=== PATIENT | female | born 1990 | race Caucasian/White ===

== ENCOUNTER 2018-12-30 16:25 | Inpatient (IN) | payer BC ==
[2018-12-30] MEDS ORDERED: Oxytocin/0.9 % Sodium Chloride 30 UNIT/500 ML BAG ONE (16:40)
[2018-12-30] MEDS ORDERED: Lidocaine 1% 50 ML MDV INJECT PRN (16:44)
[2018-12-30] MEDS ORDERED: Sodium Chloride 0.9% 10 ML Syringe FLUSH PRN (16:44)
[2018-12-30] MEDS ORDERED: Sodium Chloride 0.9% 10 ML SDV IV PRN (16:44)
[2018-12-30] MEDS ORDERED: Methylergonovine 0.2 MG/1 ML Amp IM PRN (16:44)
[2018-12-30] MEDS ORDERED: Nalbuphine 10 MG/1 ML Vial IVPUSH PRN (16:44)
[2018-12-30] MEDS ORDERED: Butorphanol 1 MG/ML SDV IVPUSH PRN (16:44)
[2018-12-30] MEDS ORDERED: Sodium Chloride 0.9% 2.5 ML Syringe FLUSH PRN (16:44)
[2018-12-30] MEDS ORDERED: Tranexamic Acid 1,000 MG in Sodium Chloride 0.9% 100 ML IV PRN (16:44)
[2018-12-30] MEDS ORDERED: Misoprostol 200 MCG Tab PO PRN (16:44)
[2018-12-30] MEDS ORDERED: Carboprost Tromethamine 250 MCG/1 ML Amp IM PRN (16:44)
[2018-12-30] MEDS ORDERED: Water For Irrigation,Sterile 1,000 ML Container IRR PRN (16:44)
[2018-12-30] MEDS ORDERED: Lactated Ringers 1,000 ML IV SCH (16:45)
[2018-12-30] MEDS ORDERED: Oxytocin/0.9 % Sodium Chloride 30 UNIT/500 ML BAG IV SCH (16:45)
--- NOTE | 2018-12-30 16:55 | PCM.LDHP ---
L&D History of Present Illness - General Date of Service: 12/30/18 Admit Problem/Dx: Patient Status Order with Admit Dx/Problem 12/30/18 16:35 Patient Status [ADT] Routine Admission Diagnosis/Problem Admission Diagnosis/Problem - planned 12/30/18 16:49 28yo EDC 01/13/2019 3/ 0/7wks vickers labor, A+, RI, GBS neg, with 2VC 12/30/18 16:52 Source of Information: Patient History Limitations: Reports: No Limitations - History of Present Illness Timing/Duration: Reports: minutes: Location, : Reports: Abdomen Quality: Reports: Ache, Burning, Pressure Severity: Severe Improves with: Reports: None Worsens with: Reports: None Associated Symptoms: Reports: N - Related Data Allergies/Adverse Reactions: Allergies Allergy/AdvReac Type Severity Reaction Status Date / Time No Known Allergies Allergy Verified 02/02/15 23:53 Home Medications: Home Meds PNV95/Ferrous Fumarate/FA [ Tablet] 1 each PO DAILY 12/30/18 [History] Past Medical History - Past Health History Medical/Surgical History: Denies Medical/Surgical History Other Genitourinary History: unilateral pyelectasis 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: Endocrine/Metabolic History: Reports: Other (See Below) Other Endocrine/Metabolic History: hypoglycemia Social & Family History - Family History Endocrine/Metabolic: Reports: Diabetes, Type I H&P Review of Systems - Review of Systems: Review Of Systems: See Below General: Reports: No Symptoms HEENT: Reports: No Symptoms Pulmonary: Reports: No Symptoms Cardiovascular: Reports: No Symptoms Gastrointestinal: Reports: No Symptoms Genitourinary: Reports: No Symptoms Musculoskeletal: Reports: No Symptoms Skin: Reports: No Symptoms Psychiatric: Reports: No Symptoms Neurological: Reports: No Symptoms Hematologic/Lymphatic: Reports: No Symptoms Immunologic: Reports: No Symptoms L&D Exam - Exam Exam: See Below - Vital Signs Weight: 77.111 kg - OB Specific Contraction Intensity: Strong Movement: Active Heart Tones: Present Heart Tones per Min: 150 Heart Rate (FHR) Variability: Moderate (6-25 bmp) Presentation: Vertex - Braxton Score Braxton Score Cervix Position: Anterior Braxton Score Consistency: Soft Braxton Score Effacement: >80% Braxton Score Dilation: > 5 cm Braxton Score 's Station: -1 ,0 Braxton Score Total: 12 - Exam General: Alert, Oriented HEENT: Hearing Intact Lungs: Normal Respiratory Effort GI/Abdominal Exam: Soft, Non-Tender Rectal Exam: Deferred Genitourinary: Normal external exam, Normal bimanual exam, Cervical dilitation. No: Cervical fluid, Vaginal bleeding Back Exam: Normal Inspection, Full Range of Motion Extremities: Normal Inspection, Normal Range of Motion, Non-Tender, No Pedal Edema Skin: Warm, Dry, Intact Neurological: Cranial Nerves Intact, Strength Equal Bilateral, Normal Gait, Normal Speech, Normal Tone Psychiatric: Alert, Normal Affect, Normal Mood - Problem List (1) Supervision of normal IUP (intrauterine ) in multigravida SNOMED Code(s): 580037132, 047062301, 425542114 ICD Code: Z34.80 - ENCOUNTER FOR SUPRVSN OF NORMAL , UNSP TRIMESTER Status: Acute Priority: High Current Visit: Yes Qualifiers: Trimester: third trimester Qualified Code(s): Z34.83 - Encounter for supervision of other normal , third trimester Problem List Initiated/Reviewed/Updated: Yes Orders Last 24hrs: Active Orders 24 hr Category Date Time Status Patient Status [ADT] Routine ADT 12/30/18 16:35 Active Heart Tones [RC] CONTINUOUS Care 12/30/18 16:44 Active Non Stress Test [RC] PER UNIT ROUTINE Care 12/30/18 16:44 Active May Shower [RC] ASDIRECTED Care 12/30/18 16:44 Active Notify Provider [RC] PRN Care 12/30/18 16:44 Active Up ad An [RC] ASDIRECTED Care 12/30/18 16:44 Active Vaginal Exam [RC] PRN Care 12/30/18 16:44 Active Vital Signs [RC] PER UNIT ROUTINE Care 12/30/18 16:44 Active CBC W/O DIFF,HEMOGRAM [HEME] Routine Lab 12/30/18 16:44 Ordered TYPE AND SCREEN [BBK] Routine Lab 12/30/18 16:44 Ordered Butorphanol [Stadol] Med 12/30/18 16:44 Active 1 mg IVPUSH Q1H PRN Carboprost Tromethamine [Hemabate DS] Med 12/30/18 16:44 Active 250 mcg IM ASDIRECTED PRN Lactated Ringers [Ringers, Lactated] 1,000 ml Med 12/30/18 16:45 Active IV ASDIRECTED Lidocaine 1% [Xylocaine 1%] Med 12/30/18 16:44 Active 50 ml INJECT ONETIME PRN Methylergonovine [Methergine] Med 12/30/18 16:44 Active 0.2 mg IM ASDIRECTED PRN Nalbuphine [Nubain] Med 12/30/18 16:44 Active 10 mg IVPUSH Q1H PRN Oxytocin/0.9 % Sodium Chloride [Oxytocin 30 Unit/500 ML Med 12/30/18 16:45 Active -NS] 30 unit in 500 ml IV TITRATE Sodium Chloride 0.9% [Normal Saline] Med 12/30/18 16:44 Ordered 10 ml IV ASDIRECTED PRN Sodium Chloride 0.9% [Saline Flush] Med 12/30/18 16:44 Ordered 10 ml FLUSH ASDIRECTED PRN Sodium Chloride 0.9% [Saline Flush] Med 12/30/18 16:44 Ordered 2.5 ml FLUSH ASDIRECTED PRN Tranexamic Acid [Cyklokapron] 1,000 mg Med 12/30/18 16:44 Ordered Sodium Chloride 0.9% [Normal Saline] 100 ml IV ONETIME Water For Irrigation,Sterile [Sterile Water for Med 12/30/18 16:44 Ordered Irrigation] 1,000 ml IRR ASDIRECTED PRN miSOPROStol [Cytotec] Med 12/30/18 16:44 Active 200 mcg PO ONETIME PRN Scalp Electrode [WOMSER] Per Unit Routine Oth 12/30/18 16:44 Ordered Peripheral IV Insertion Adult [OM.PC] Routine Oth 12/30/18 16:44 Ordered Resuscitation Status Routine Resus Stat 12/30/18 16:44 Ordered Medication Orders Butorphanol Tartrate (Stadol) 1 mg IVPUSH Q1H PRN PRN Reason: Pain Carboprost Tromethamine (Hemabate Ds) 250 mcg IM ASDIRECTED PRN PRN Reason: Post Hemorrhage Lactated Ringer's (Ringers, Lactated) 1,000 mls @ 150 mls/hr IV ASDIRECTED HERB Oxytocin/Sodium Chloride (Oxytocin 30 Unit/500 Ml-Ns) 30 unit in 500 mls @ 999 mls/hr IV TITRATE HERB Tranexamic Acid 1,000 mg/ (Sodium Chloride) 110 mls @ 660 mls/hr IV ONETIME PRN PRN Reason: Bleeding Lidocaine HCl (Xylocaine 1%) 50 ml INJECT ONETIME PRN PRN Reason: Laceration repair Methylergonovine Maleate (Methergine) 0.2 mg IM ASDIRECTED PRN PRN Reason: Post Hemorrhage Misoprostol (Cytotec) 200 mcg PO ONETIME PRN PRN Reason: Post Hemorrhage Nalbuphine HCl (Nubain) 10 mg IVPUSH Q1H PRN PRN Reason: Pain (severe 7-10) Sodium Chloride (Saline Flush) 10 ml FLUSH ASDIRECTED PRN PRN Reason: Keep Vein Open Sodium Chloride (Saline Flush) 2.5 ml FLUSH ASDIRECTED PRN PRN Reason: Keep Vein Open Sodium Chloride (Normal Saline) 10 ml IV ASDIRECTED PRN PRN Reason: IV Use Sterile Water (Sterile Water For Irrigation) 1,000 ml IRR ASDIRECTED PRN PRN Reason: delivery Assessment/Plan Comment:: Labor A: 28yo EDC 01/13/2019 3/ 0/7wks vickers labor, A+, RI, GBS neg, Infant with 2VC, SVE by RN /-2 BBOW P: Admit, anticipate . Dr cueva updated
[2018-12-30] MEDS ORDERED: Bisacodyl 10 MG Supp RECTAL PRN (18:40)
[2018-12-30] MEDS ORDERED: Acetaminophen 500 MG Tab PO PRN ×2 (18:40)
[2018-12-30] MEDS ORDERED: oxyCODONE 5 MG Tab PO PRN (18:40)
[2018-12-30] MEDS ORDERED: Ibuprofen 800 MG Tab PO PRN (18:40)
[2018-12-30] MEDS ORDERED: Docusate Sodium 100 MG Cap PO PRN (18:40)
[2018-12-30] MEDS ORDERED: Benzocaine/Menthol 20%-0.5% Spray 78 GM Cannister TOP PRN (18:40)
[2018-12-30] MEDS ORDERED: Witch Hazel Medicated Pads 40/Jar TOP PRN (18:40)
[2018-12-30] MEDS ORDERED: Lanolin 100% Cream 7 GM Tube TOP PRN (18:40)
[2018-12-30] MEDS ORDERED: Ibuprofen 400 MG Tab PO PRN (18:40)
--- NOTE | 2018-12-30 18:47 | PCM.DEL ---
L & D Note - General Info Date of Service: 12/30/18 Mother's Due Date: 01/13/19 - Delivery Note Labor: Spontaneous Delivery Outcome: Livebirth Infant Delivery Method: Spontaneous Vaginal Delivery-Single Delivery Mode: Spontaneous Presentation: Vertex Nuchal Cord: None Anesthesia Type: None Amniotic Fluid Description: Clear Episiotomy Type: None Laceration: None Placenta: Intact, Spontaneous Cord: 2 Vessels Estimated Blood Loss: 100 Resuscitation Needed: No Score 1 min: 8 Score 5 min: 8 Second Stage Interventions: Reports: Pushing, Knee Chest Position Delivery Comments (Free Text/Narrative):: of viable female, head delivered with good pushing, shoulders and body followed easily. with spont cry placed in moms arms and mom assisted from hands and knees to sara fowlers. RN at to assess . Delayed cord clamping, pitocin to IVF, cord clamped and cut. Cord blood collected. Placenta delivered grossly intact. 2VC. Inspection noted intact perineum. EBL 100cc, APGARS 8/8, WT: 7lb 10oz. Mother and baby left in stable condition for recovery. - General Info Date of Service: 12/30/18 Admission Dx/Problem (Free Text): Patient Status Order with Admit Dx/Problem 12/30/18 16:35 Patient Status [ADT] Routine Admission Diagnosis/Problem Admission Diagnosis/Problem - planned 12/30/18 16:49 28yo EDC 01/13/2019 3/ 0/7wks vickers labor, A+, RI, GBS neg, Infant with 2VC 12/30/18 16:52 Functional Status: Reports: Pain Controlled, Tolerating Diet - Review of Systems General: Reports: No Symptoms HEENT: Reports: No Symptoms Pulmonary: Reports: No Symptoms Cardiovascular: Reports: No Symptoms Gastrointestinal: Reports: No Symptoms Genitourinary: Reports: No Symptoms Musculoskeletal: Reports: No Symptoms Skin: Reports: No Symptoms Neurological: Reports: No Symptoms Psychiatric: Reports: No Symptoms - Patient Data Weight - Most Recent: 77.111 kg Lab Results Last 24 Hours: Laboratory Results - last 24 hr 12/30/18 Range/Units 16:48 WBC 15.18 H (4.0-11.0) K/uL RBC 4.46 (4.30-5.90) M/uL Hgb 14.0 (12.0-16.0) g/dL Hct 41.9 (36.0-46.0) % MCV 93.9 (80.0-98.0) fL MCH 31.4 (27.0-32.0) pg MCHC 33.4 (31.0-37.0) g/dL RDW Std Deviation 46.2 (28.0-62.0) fl RDW Coeff of Alex 14 (11.0-15.0) % Plt Count 295 (150-400) K/uL MPV 10.50 (7.40-12.00) fL Nucleated RBC % 0.0 /100WBC Nucleated RBCs # 0 K/uL Med Orders - Current: Current Medications Acetaminophen (Tylenol Extra Strength) 500 mg PO Q4H PRN PRN Reason: Pain Acetaminophen (Tylenol Extra Strength) 1,000 mg PO Q4H PRN PRN Reason: Pain Benzocaine/Menthol (Dermoplast Pain Relief 20%-0.5% [place]) 78 gm TOP ASDIRECTED PRN PRN Reason: Perineal Comfort Measure Bisacodyl (Dulcolax) 10 mg RECTAL ONETIME PRN PRN Reason: Constipation Docusate Sodium (Colace) 100 mg PO BID PRN PRN Reason: Constipation Ibuprofen (Motrin) 400 mg PO Q4H PRN PRN Reason: Pain Discontinued Medications Butorphanol Tartrate (Stadol) 1 mg IVPUSH Q1H PRN PRN Reason: Pain Carboprost Tromethamine (Hemabate Ds) 250 mcg IM ASDIRECTED PRN PRN Reason: Post Hemorrhage Oxytocin/Sodium Chloride (Oxytocin 30 Unit/500 Ml-Ns) Confirm Administered Dose 30 unit in 500 mls @ as directed .ROUTE .STK-MED ONE Stop: 12/30/18 16:41 Lactated Ringer's (Ringers, Lactated) 1,000 mls @ 150 mls/hr IV ASDIRECTED HERB Oxytocin/Sodium Chloride (Oxytocin 30 Unit/500 Ml-Ns) 30 unit in 500 mls @ 999 mls/hr IV TITRATE HERB Tranexamic Acid 1,000 mg/ (Sodium Chloride) 110 mls @ 660 mls/hr IV ONETIME PRN PRN Reason: Bleeding Lidocaine HCl (Xylocaine 1%) 50 ml INJECT ONETIME PRN PRN Reason: Laceration repair Methylergonovine Maleate (Methergine) 0.2 mg IM ASDIRECTED PRN PRN Reason: Post Hemorrhage Misoprostol (Cytotec) 200 mcg PO ONETIME PRN PRN Reason: Post Hemorrhage Nalbuphine HCl (Nubain) 10 mg IVPUSH Q1H PRN PRN Reason: Pain (severe 7-10) Sodium Chloride (Saline Flush) 10 ml FLUSH ASDIRECTED PRN PRN Reason: Keep Vein Open Sodium Chloride (Saline Flush) 2.5 ml FLUSH ASDIRECTED PRN PRN Reason: Keep Vein Open Sodium Chloride (Normal Saline) 10 ml IV ASDIRECTED PRN PRN Reason: IV Use Sterile Water (Sterile Water For Irrigation) 1,000 ml IRR ASDIRECTED PRN PRN Reason: delivery - Exam General: Alert, Oriented, Cooperative, No Acute Distress Lungs: Normal Respiratory Effort GI/Abdominal Exam: Soft, Non-Tender (Female) Exam: Normal External Exam, Normal Bimanual Exam, Vaginal Bleeding. No: Vaginal Lesions, Vaginal Tears Back Exam: Normal Inspection, Full Range of Motion Extremities: Normal Inspection, Normal Range of Motion, Non-Tender, No Pedal Edema Skin: Warm, Dry, Intact Neurological: No New Focal Deficit, Normal Speech, Normal Tone, Strength Equal Bilateral Psy/Mental Status: Alert - Problem List & Annotations (1) Supervision of normal IUP (intrauterine ) in multigravida SNOMED Code(s): 099487958, 808270488, 038236700 Code(s): Z34.80 - ENCOUNTER FOR SUPRVSN OF NORMAL , UNSP TRIMESTER Status: Acute Priority: High Current Visit: Yes Qualifiers: Trimester: third trimester Qualified Code(s): Z34.83 - Encounter for supervision of other normal , third trimester (2) (normal spontaneous vaginal delivery) SNOMED Code(s): 97281374 Code(s): O80 - ENCOUNTER FOR FULL-TERM UNCOMPLICATED DELIVERY Status: Acute Priority: High Current Visit: Yes - Problem List Review Problem List Initiated/Reviewed/Updated: Yes - My Orders Last 24 Hours: My Active Orders 12/30/18 18:40 May Shower [RC] ASDIRECTED Up ad An [RC] ASDIRECTED Vital Signs [RC] PER UNIT ROUTINE Acetaminophen [Tylenol Extra Strength] 1,000 mg PO Q4H PRN Acetaminophen [Tylenol Extra Strength] 500 mg PO Q4H PRN Benzocaine/Menthol [Dermoplast Pain Relief 20%-0.5% [place]] 78 gm TOP ASDIRECTED PRN Bisacodyl [Dulcolax] 10 mg RECTAL ONETIME PRN Docusate Sodium [Colace] 100 mg PO BID PRN Ibuprofen [Motrin] 400 mg PO Q4H PRN Ibuprofen [Motrin] 800 mg PO Q6H PRN Lanolin [Lansinoh HPA] See Dose Instructions TOP ASDIRECTED PRN Witch Regine [Tucks] 1 pad TOP ASDIRECTED PRN oxyCODONE 5 mg PO Q2H PRN Assess Lochia [WOMSER] Per Unit Routine Assess Uterine Involution [WOMSER] Per Unit Routine Peripheral IV Discontinue [OM.PC] Routine Resuscitation Status Routine 12/30/18 18:41 Patient Status [ADT] Routine 12/30/18 Dinner Regular Diet [DIET] - Plan Plan:: Labor A: 28yo EDC 01/13/2019 3/ 0/7wks vickers labor, A+, RI, GBS neg, Infant with 2VC, SVE by RN /-2 BBOW P: Admit, anticipate . Dr cueva updated Delivery A: of viable female, APGARS 8/8, Wt: 7lb 10oz. Intact perineum [id number]. Mother and baby stable P: Routine pp plan of care
[2018-12-31] MEDS ORDERED: Ondansetron 4 MG/2 ML SDV IVPUSH PRN (05:29)
[2018-12-31] MEDS ORDERED: Sodium Chloride 0.9% 10 ML SDV IV PRN (05:29)
[2018-12-31] MEDS ORDERED: Sodium Chloride 0.9% 2.5 ML Syringe FLUSH PRN (05:29)
[2018-12-31] MEDS ORDERED: Sodium Chloride 0.9% 10 ML Syringe FLUSH PRN (05:29)
[2018-12-31] MEDS ORDERED: Lactated Ringers 1,000 ML IV SCH (05:30)
--- NOTE | 2018-12-31 08:56 | PCM.DCSUM1 ---
Discharge Summary - Hospital Course Free Text/Narrative:: Discharge home with . Follow up 6 weeks for . Diagnosis: Stroke: No - Discharge Data Discharge Date: 12/31/18 Discharge Disposition: Home, Self-Care 01 Condition: Good - Discharge Diagnosis/Problem(s) (1) Supervision of normal IUP (intrauterine ) in multigravida SNOMED Code(s): 533600942, 578260092, 243238512 ICD Code: Z34.80 - ENCOUNTER FOR SUPRVSN OF NORMAL , UNSP TRIMESTER Status: Acute Priority: High Current Visit: Yes Qualifiers: Trimester: third trimester Qualified Code(s): Z34.83 - Encounter for supervision of other normal , third trimester (2) (normal spontaneous vaginal delivery) SNOMED Code(s): 72258659 ICD Code: O80 - ENCOUNTER FOR FULL-TERM UNCOMPLICATED DELIVERY Status: Acute Priority: High Current Visit: Yes - Patient Instructions Diet: Usual Diet as Tolerated Activity: As Tolerated, No Strenuous Activities, Rest and Relax Today Driving: May Drive Today Showering/Bathing: May Shower Notify Provider of: Fever, Increased Pain, Swelling and Redness, Nausea and/or Vomiting Other/Special Instructions: Discharge home with infant. Follow up 6 weeks for . - Discharge Plan *PRESCRIPTION DRUG MONITORING PROGRAM REVIEWED*: Not Applicable *COPY OF PRESCRIPTION DRUG MONITORING REPORT IN PATIENT [place]IE[place]: Not Applicable Prescriptions/Med Rec: Ibuprofen [Motrin] 800 mg PO Q6H PRN #90 tablet PRN Reason: Pain Home Medications: Home Meds PNV95/Ferrous Fumarate/FA [ Tablet] 1 each PO DAILY 12/30/18 [History] Ibuprofen [Motrin] 800 mg PO Q6H PRN #90 tablet 12/31/18 [Rx] Oxygen Therapy Mode: Room Air - Discharge Summary/Plan Comment DC Time >30 min.: Yes - General Info Date of Service: 12/31/18 Admission Dx/Problem (Free Text: Patient Status Order with Admit Dx/Problem 12/30/18 16:35 Patient Status [ADT] Routine Admission Diagnosis/Problem Admission Diagnosis/Problem - planned 12/30/18 16:49 28yo EDC 01/13/2019 3/ 0/7wks vickers labor, A+, RI, GBS neg, Infant with 2VC 12/30/18 16:52 Functional Status: Reports: Pain Controlled, Tolerating Diet, Ambulating, Urinating - Review of Systems General: Reports: No Symptoms HEENT: Reports: No Symptoms Pulmonary: Reports: No Symptoms Cardiovascular: Reports: No Symptoms Gastrointestinal: Reports: No Symptoms Genitourinary: Reports: No Symptoms Musculoskeletal: Reports: No Symptoms Skin: Reports: No Symptoms Neurological: Reports: No Symptoms Psychiatric: Reports: No Symptoms - Patient Data Vitals - Most Recent: Last Vital Signs Temp 36.8 C 12/31/18 07:25 Pulse 72 12/31/18 07:25 Resp 16 12/31/18 07:25 BP 94/57 L 12/31/18 07:25 Pulse Ox 96 12/31/18 07:25 Weight - Most Recent: 77.111 kg Lab Results - Last 24 hrs: Laboratory Results - last 24 hr 12/30/18 12/30/18 Range/Units 16:48 16:48 WBC 15.18 H (4.0-11.0) K/uL RBC 4.46 (4.30-5.90) M/uL Hgb 14.0 (12.0-16.0) g/dL Hct 41.9 (36.0-46.0) % MCV 93.9 (80.0-98.0) fL MCH 31.4 (27.0-32.0) pg MCHC 33.4 (31.0-37.0) g/dL RDW Std Deviation 46.2 (28.0-62.0) fl RDW Coeff of [place] 14 (11.0-15.0) % Plt Count 295 (150-400) K/uL MPV 10.50 (7.40-12.00) fL Nucleated RBC % 0.0 /100WBC Nucleated RBCs # 0 K/uL Blood Type A POSITIVE Antibody Screen NEGATIVE Med Orders - Current: Current Medications Acetaminophen (Tylenol Extra Strength) 500 mg PO Q4H PRN PRN Reason: Pain Acetaminophen (Tylenol Extra Strength) 1,000 mg PO Q4H PRN PRN Reason: Pain Benzocaine/Menthol (Dermoplast Pain Relief 20%-0.5% [place]) 78 gm TOP ASDIRECTED PRN PRN Reason: Perineal Comfort Measure Bisacodyl (Dulcolax) 10 mg RECTAL ONETIME PRN PRN Reason: Constipation Docusate Sodium (Colace) 100 mg PO BID PRN PRN Reason: Constipation Emollient Ointment (Lansinoh Hpa) 0 gm TOP ASDIRECTED PRN PRN Reason: Sore Nipples Ibuprofen (Motrin) 400 mg PO Q4H PRN PRN Reason: Pain Ibuprofen (Motrin) 800 mg PO Q6H PRN PRN Reason: Pain Last Admin: 12/30/18 18:53 Dose: 800 mg Oxycodone HCl (Oxycodone) 5 mg PO Q2H PRN PRN Reason: Pain Sodium Chloride (Saline Flush) 10 ml FLUSH ASDIRECTED PRN PRN Reason: Keep Vein Open Sodium Chloride (Saline Flush) 2.5 ml FLUSH ASDIRECTED PRN PRN Reason: Keep Vein Open Sodium Chloride (Normal Saline) 10 ml IV ASDIRECTED PRN PRN Reason: IV Use Witch Regine (Tucks) 1 pad TOP ASDIRECTED PRN PRN Reason: comfort care Discontinued Medications Butorphanol Tartrate (Stadol) 1 mg IVPUSH Q1H PRN PRN Reason: Pain Carboprost Tromethamine (Hemabate Ds) 250 mcg IM ASDIRECTED PRN PRN Reason: Post Hemorrhage Oxytocin/Sodium Chloride (Oxytocin 30 Unit/500 Ml-Ns) Confirm Administered Dose 30 unit in 500 mls @ as directed .ROUTE .[facility]-MED ONE Stop: 12/30/18 16:41 Lactated Ringer's (Ringers, Lactated) 1,000 mls @ 150 mls/hr IV ASDIRECTED [facility] Oxytocin/Sodium Chloride (Oxytocin 30 Unit/500 Ml-Ns) 30 unit in 500 mls @ 999 mls/hr IV TITRATE [facility] Last Admin: 12/30/18 18:22 Dose: 999 mls/hr Tranexamic Acid 1,000 mg/ (Sodium Chloride) 110 mls @ 660 mls/hr IV ONETIME PRN PRN Reason: Bleeding Lidocaine HCl (Xylocaine 1%) 50 ml INJECT ONETIME PRN PRN Reason: Laceration repair Methylergonovine Maleate (Methergine) 0.2 mg IM ASDIRECTED PRN PRN Reason: Post Hemorrhage Misoprostol (Cytotec) 200 mcg PO ONETIME PRN PRN Reason: Post Hemorrhage Nalbuphine HCl (Nubain) 10 mg IVPUSH Q1H PRN PRN Reason: Pain (severe 7-10) Sodium Chloride (Saline Flush) 10 ml FLUSH ASDIRECTED PRN PRN Reason: Keep Vein Open Sodium Chloride (Saline Flush) 2.5 ml FLUSH ASDIRECTED PRN PRN Reason: Keep Vein Open Sodium Chloride (Normal Saline) 10 ml IV ASDIRECTED PRN PRN Reason: IV Use Sterile Water (Sterile Water For Irrigation) 1,000 ml IRR ASDIRECTED PRN PRN Reason: delivery - Exam General: Reports: Alert, Oriented, Cooperative, No Acute Distress Lungs: Reports: Normal Respiratory Effort GI/Abdominal Exam: Soft, Non-Tender (Female) Exam: Deferred, Vaginal Bleeding Rectal (Female) Exam: Deferred Back Exam: Reports: Normal Inspection, Full Range of Motion Extremities: Normal Inspection, Normal Range of Motion, Non-Tender, No Pedal Edema Skin: Reports: Warm, Dry, Intact Neurological: Reports: No New Focal Deficit, Normal Speech, Normal Tone, Strength Equal Bilateral Psy/Mental Status: Reports: Alert, Normal Affect, Normal Mood
[2018-12-31 16:55] VITALS: BP 131/77
== END 2018-12-31 20:10 | disposition home or self-care (01) | DRG 560 ==
LOC: MW.OBCHECK 16:25 → EDLOC 16:26 → MW.OB 16:26 → OBSVTOIN 18:22 → MW.OB 18:59 → UNDOADMOB 18:59 → MW.OB 12-31 02:01
PROVIDERS: ADMIT Obstetrics & Gynecology; ATTEND Obstetrics & Gynecology
PROC: 10E0XZZ Delivery of Products of Conception, External Approach (ICD-10-PCS; principal; 2018-12-30)
PROC: 6A550ZT Pheresis of Cord Blood Stem Cells, Single (ICD-10-PCS; principal; 2018-12-30)
DX: O36.5930 Maternal care for other known or suspected poor fetal growth, third trimester, not applicable or unspecified (principal); O69.89X0 Labor and delivery complicated by other cord complications, not applicable or unspecified; Z3A.37 37 weeks gestation of pregnancy; Z37.0 Single live birth
CPT/HCPCS: 36415; 59025; 59409; 85027; 86850; 86900; 86901; A9270-GY; J2590

== ENCOUNTER 2021-11-09 01:58 | Inpatient (IN) | payer BC ==
[2021-11-09] MEDS ORDERED: Carboprost Tromethamine 250 MCG/1 ML Amp IM PRN (02:06)
[2021-11-09] MEDS ORDERED: Sodium Chloride 0.9% 20 ML SDV IV PRN (02:06)
[2021-11-09] MEDS ORDERED: Tranexamic Acid 1,000 MG in Sodium Chloride 0.9% 100 ML IV PRN (02:06)
[2021-11-09] MEDS ORDERED: Butorphanol 1 MG/ML SDV IVPUSH PRN (02:06)
[2021-11-09] MEDS ORDERED: Water For Irrigation,Sterile 1,000 ML Container IRR PRN (02:06)
[2021-11-09] MEDS ORDERED: Sodium Chloride 0.9% 10 ML Syringe FLUSH PRN (02:06)
[2021-11-09] MEDS ORDERED: Methylergonovine 0.2 MG/1 ML Amp IM PRN (02:06)
[2021-11-09] MEDS ORDERED: Misoprostol 200 MCG Tab PO PRN (02:06)
[2021-11-09] MEDS ORDERED: Lidocaine 1% 50 ML MDV INJECT PRN (02:06)
[2021-11-09] MEDS ORDERED: Sodium Chloride 0.9% 2.5 ML Syringe FLUSH PRN (02:06)
[2021-11-09] MEDS ORDERED: Oxytocin/0.9 % Sodium Chloride 30 UNIT/500 ML BAG IV SCH (02:15)
[2021-11-09] MEDS ORDERED: Lactated Ringers 1,000 ML IV SCH (02:15)
[2021-11-09] MEDS ORDERED: Docusate Sodium 100 MG Cap PO PRN (10:57)
[2021-11-09] MEDS ORDERED: Benzocaine/Menthol 20%-0.5% Spray 78 GM Cannister TOP PRN (10:57)
[2021-11-09] MEDS ORDERED: oxyCODONE 5 MG Tab PO PRN (10:57)
[2021-11-09] MEDS ORDERED: Ibuprofen 400 MG Tab PO PRN (10:57)
[2021-11-09] MEDS ORDERED: Acetaminophen 500 MG Tab PO PRN ×2 (10:57)
[2021-11-09] MEDS ORDERED: Bisacodyl 10 MG Supp RECTAL PRN (10:57)
[2021-11-09] MEDS ORDERED: Witch Hazel Medicated Pads 40/Jar TOP PRN (10:57)
[2021-11-09] MEDS ORDERED: Lanolin 100% Cream 7 GM Tube TOP PRN (10:57)
[2021-11-09] MEDS: Ibuprofen 800 MG Tab PO PRN ×3 (11:21→23:54)
[2021-11-10] MEDS: Ibuprofen 800 MG Tab PO PRN ×2 (06:13→17:09)
[2021-11-11 08:54] VITALS: BP 117/72; PULSE 74
== END 2021-11-11 12:15 | disposition home or self-care (01) | DRG 560 ==
LOC: MW.OBCHECK 01:58 → MW.OB 02:01 → MW.OBCHECK 02:06 → OBSVTOIN 04:48 → MW.OB 08:59
PROVIDERS: ADMIT Obstetrics & Gynecology Obstetrics; ATTEND Obstetrics & Gynecology Obstetrics
PROC: 10E0XZZ Delivery of Products of Conception, External Approach (ICD-10-PCS; principal; 2021-11-09)
PROC: 10907ZC Drainage of Amniotic Fluid, Therapeutic from Products of Conception, Via Natural or Artificial Opening (ICD-10-PCS; 2021-11-09)
DX: O80 Encounter for full-term uncomplicated delivery (principal); Z37.0 Single live birth; Z3A.40 40 weeks gestation of pregnancy; Z20.822 Contact with and (suspected) exposure to COVID-19
CPT/HCPCS: 36415; 59025; 59409; 59414; 85014; 85018; 85027; 86592; 86850; 86900; 86901; A9270-GY; J2590; U0002

== ENCOUNTER 2024-01-13 20:34 | Inpatient (IN) | payer BC ==
[2024-01-13] MEDS ORDERED: Methylergonovine 0.2 MG/1 ML Amp IM PRN (21:26)
[2024-01-13] MEDS ORDERED: Carboprost Tromethamine 250 MCG/1 mL Vial IM PRN (21:26)
[2024-01-13] MEDS ORDERED: Sodium Chloride 0.9% 2.5 ML Syringe FLUSH PRN (21:26)
[2024-01-13] MEDS ORDERED: Tranexamic Acid IN NACL,ISO-OS 1,000 MG in Premix Bag 1 BAG IV PRN (21:26)
[2024-01-13] MEDS ORDERED: Sodium Chloride 0.9% 20 ML SDV IV PRN (21:26)
[2024-01-13] MEDS ORDERED: Sodium Chloride 0.9% 10 ML Syringe FLUSH PRN (21:26)
[2024-01-13] MEDS ORDERED: Ondansetron 4 MG/2 ML SDV IVPUSH PRN (21:26)
[2024-01-13] MEDS ORDERED: Lidocaine 1% 50 ML MDV INJECT PRN (21:26)
[2024-01-13] MEDS ORDERED: Misoprostol 200 MCG Tab PO PRN (21:26)
[2024-01-13] MEDS ORDERED: Butorphanol 2 MG/ML SDV IVPUSH PRN (21:26)
[2024-01-13] MEDS ORDERED: Water For Irrigation,Sterile 1,000 ML Container IRR PRN (21:26)
[2024-01-13] MEDS: Lactated Ringers 1,000 ML IV SCH (21:30)
[2024-01-13] MEDS ORDERED: Oxytocin/0.9 % Sodium Chloride 30 UNIT/500 ML BAG IV SCH (21:30)
[2024-01-13] MEDS ORDERED: Phenylephrine HCl In 0.9% NaCl 1 MG/10 ML Syringe IVPUSH ONE (21:31)
[2024-01-13] MEDS ORDERED: ePHEDrine 50 MG/ML SDV IVPUSH PRN ×2 (21:31)
[2024-01-13] MEDS: Ampicillin 2 GM in Sodium Chloride 0.9% 100 ML IV STA (21:45)
[2024-01-13] MEDS ORDERED: Ropivacaine HCl/PF 400 MG in Premix Bag 1 BAG EPIDUR SCH (21:45)
[2024-01-13 22:25] LABS: HEMATOCRIT 33.8 % (37.0-47.0); HEMOGLOBIN 10.7 g/dL (12.0-16.0); MEAN CORPUSCULAR HEMOGLOBIN 25.6 pg (28.0-32.0); MEAN CORPUSCULAR HGB CONC 31.7 g/dL (32.0-36.0); MEAN CORPUSCULAR VOLUME 80.9 fL (83.0-99.0); MEAN PLATELET VOLUME 10.1 fL (9.4-12.3); PLATELET COUNT,PLT 341 K/uL (150-400); RED BLOOD CELL COUNT 4.18 M/uL (4.10-5.30); WHITE BLOOD CELL COUNT,WBC 16.53 K/uL (3.9-11.3)
[2024-01-14] MEDS: Ampicillin 1 GM Vial IV SCH (01:00)
[2024-01-14] MEDS ORDERED: Ampicillin 1 GM Vial IM SCH (01:00)
[2024-01-14] MEDS: Sodium Chloride 0.9% 50 ML ONE (01:00)
[2024-01-14] MEDS ORDERED: Lanolin 100% Cream 7 GM Tube TOP PRN (02:17)
[2024-01-14] MEDS ORDERED: Ibuprofen 800 MG Tab PO PRN (02:17)
[2024-01-14] MEDS ORDERED: Docusate Sodium 100 MG Cap PO PRN (02:17)
[2024-01-14] MEDS ORDERED: Methylergonovine 0.2 MG/1 ML Amp IM PRN (02:17)
[2024-01-14] MEDS ORDERED: Tranexamic Acid IN NACL,ISO-OS 1,000 MG in Premix Bag 1 BAG IV PRN (02:17)
[2024-01-14 02:46] LABS: PH,UMBILICAL ARTERIAL 7.22 (7.18-7.38); PH,UMBILICAL VENOUS 7.343 (7.25-7.45)
[2024-01-14] MEDS: Witch Hazel Medicated Pads 40/Jar TOP PRN (03:04)
[2024-01-14] MEDS: Benzocaine/Menthol 20%-0.5% Spray 78 GM Cannister TOP PRN (03:06)
[2024-01-14] MEDS: Acetaminophen 500 MG Tab PO PRN (04:23)
[2024-01-15 05:43] VITALS: BP 117/65; PULSE 76
[2024-01-15 06:24] LABS: HEMATOCRIT 29.5 % (37.0-47.0); HEMOGLOBIN 9.5 g/dL (12.0-16.0)
== END 2024-01-15 11:03 | disposition home or self-care (01) | DRG 560 ==
LOC: MW.OBCHECK 20:34 → MW.OB 20:37 → MW.OBCHECK 21:26 → MW.OB 21:26 → OBSVTOIN 01-14 01:49 → MW.OB 01-14 05:28
PROVIDERS: ADMIT Obstetrics & Gynecology; ATTEND Obstetrics & Gynecology
PROC: 10E0XZZ Delivery of Products of Conception, External Approach (ICD-10-PCS; principal; 2024-01-14)
DX: O99.824 Streptococcus B carrier state complicating childbirth (principal); Z37.0 Single live birth; Z3A.39 39 weeks gestation of pregnancy
CPT/HCPCS: 36415; 59025; 59409; 82803; 85014; 85018; 85027; 86592; 86850; 86900; 86901; A9270-GY; J0290; J3490; J7120